=== PATIENT | male | born 2005 ===

== ENCOUNTER 2023-03-29 07:04 | Day surgery (SDC) | payer OTHER ==
[~2023-03-29] VITALS: Ht 213.4 cm; Wt 75.3 kg
[2023-03-29] MEDS ORDERED: fentaNYL citrate 0.05 MG/ML VIAL ONE (08:13)
[2023-03-29] MEDS ORDERED: MIDAZOLAM 2 MG/2 ML VIAL ONE (08:14)
[2023-03-29] MEDS ORDERED: LIDOCAINE 2% 100 MG/5 ML UJET TP ONE (08:14)
[2023-03-29] MEDS ORDERED: fentaNYL citrate 0.05 MG/ML VIAL IVP ONE (13:15)
== END 2023-03-29 09:11 | disposition home or self-care (01) ==
LOC: MDS 07:04 → MMU 07:28 → MDS 09:11
PROVIDERS: ATTEND Internal Medicine Gastroenterology
DX: K64.1 Second degree hemorrhoids (principal); K63.89 Other specified diseases of intestine
CPT/HCPCS: 45330; J3010; 45350; J2250